=== PATIENT | female | born 1955 | race African-American/Black ===

== ENCOUNTER 2018-05-01 16:25 | Emergency (ER) | payer MEDICAID ==
[~2018-05-01] VITALS: Ht 162.6 cm; Wt 93.2 kg
[~2018-05-01 16:25] MED LIST: FLORAJEN3 CAPS460 MG PO; K-TAB10 MEQ PO; LEVAQUIN; LOPRESSOR25 MG PO; OMNICEF300 MG PO; PHENERGAN PO; PROAIR HFA8.5 GM INH; ZITHROMAX250 MG PO
[2018-05-01 16:29] VITALS: Ht 162.6 cm; Wt 93.2 kg
[2018-05-01] MEDS ORDERED: HYDROCODON-ACE1 EAC7 PO (18:12)
[2018-05-01] MEDS ORDERED: TORADOL10 MG PO (18:12)
[2018-05-01 18:29] VITALS: BP 127/58
== END 2018-05-01 18:29 | disposition home or self-care (01) ==
LOC: D.ER 16:25
DX: S80.02XA Contusion of left knee, initial encounter (principal); S80.01XA Contusion of right knee, initial encounter; W18.30XA Fall on same level, unspecified, initial encounter; Y93.89 Activity, other specified; Y92.019 Unspecified place in single-family (private) house as the place of occurrence of the external cause; M16.12 Unilateral primary osteoarthritis, left hip

== ENCOUNTER 2020-03-11 20:39 | Emergency (ER) | payer SELFPAY ==
[~2020-03-11] VITALS: Ht 162.6 cm; Wt 63.5 kg
[~2020-03-11 20:39] MED LIST changes: +HYDROCODON-ACE1 EAC7 PO; +TORADOL10 MG PO
[2020-03-11 20:55] VITALS: Ht 162.6 cm; Wt 63.5 kg
[2020-03-11] MEDS ORDERED: FERROUS SULFAT325 MG PO (20:55)
[2020-03-11 21:06] LABS: BASOPHILS 0.1 % (0-2); EOSINOPHILS 0.7 % (0-7); HEMATOCRIT 37.4 % (36.0-48.0); HEMOGLOBIN 12.2 g/dL (12-16); IMMATURE GRANULOCYTES 0.3 % (0-5); LYMPHOCYTES 27.1 % (15-50); MCH 27.9 pg (26.0-34.0); MCHC 32.6 g/dL (31.0-37.0); MCV 85.6 fL (80.0-100.0); MEAN PLATELET VOLUME 9.8 fL (7.4-10.4); MONOCYTES 7.3 % (2-11); NEUTROPHILS 64.5 % (40-80); PLATELET COUNT 282 10x3/uL (130-400); RBC 4.37 10x6/uL (4.00-5.40); RDW 14.8 % (11.5-14.5); WBC 9.2 10x3/uL (4.8-10.8)
[2020-03-11 21:21] LABS: INR 1.15 (0.85-1.17); PROTIME 14.6 SECONDS (11.6-15.0)
[2020-03-11 21:22] LABS: APTT 34.4 SECONDS (22.8-39.4)
[2020-03-11 21:33] LABS: ALBUMIN 4.1 g/dL (3.4-5.0); ALKALINE PHOSPHATASE 51 U/L (30-120); ALT (SGPT) 34 U/L (10-68); BILIRUBIN - TOTAL 0.64 mg/dL (0.2-1.3); CALC OSMOLALITY 247 mosm/kg (275-300); CALCIUM 9.4 mg/dL (8.5-10.1); CARBON DIOXIDE 31.3 mmol/L (21.0-32.0); CKMB 4.4 U/L (0.0-3.6); GLUCOSE 127 mg/dL (74-106); PROTEIN - SERUM 9.1 g/dL (6.4-8.2); SODIUM 123 mmol/L (136-145); TROPONIN-I < 0.017 ng/mL (0.000-0.060); UREA NITROGEN 8 mg/dL (7-18); eGFR NON AFRICAN AMERICAN 59 mL/min (90-120)
[2020-03-11 21:36] LABS: CREATINE KINASE 882 UL (21-215)
[2020-03-11 21:43] LABS: CHLORIDE - SERUM 85 mmol/L (98-107); POTASSIUM - SERUM 2.7 mmol/L (3.5-5.1)
[2020-03-12 00:12] VITALS: BP 164/89
== END 2020-03-12 00:12 | disposition home or self-care (01) ==
LOC: D.ER 20:39
PROVIDERS: Family Medicine
DX: E86.0 Dehydration (principal); E87.6 Hypokalemia; E87.1 Hypo-osmolality and hyponatremia

== ENCOUNTER 2020-03-13 20:05 | Inpatient (IN) | payer SELFPAY ==
[~2020-03-13] VITALS: Ht 162.6 cm; Wt 68.0 kg
[~2020-03-13 20:05] MED LIST changes: +FERROUS SULFAT325 MG PO
[2020-03-13 20:42] LABS: BASOPHILS 0.3 % (0-2); EOSINOPHILS 0.4 % (0-7); HEMATOCRIT 38.6 % (36.0-48.0); HEMOGLOBIN 12.5 g/dL (12-16); IMMATURE GRANULOCYTES 0.3 % (0-5); LYMPHOCYTES 20.4 % (15-50); MCH 27.9 pg (26.0-34.0); MCHC 32.4 g/dL (31.0-37.0); MCV 86.2 fL (80.0-100.0); MEAN PLATELET VOLUME 9.2 fL (7.4-10.4); MONOCYTES 6.8 % (2-11); NEUTROPHILS 71.8 % (40-80); PLATELET COUNT 243 10x3/uL (130-400); RBC 4.48 10x6/uL (4.00-5.40); WBC 6.9 10x3/uL (4.8-10.8)
[2020-03-13 20:57] LABS: CALC OSMOLALITY 268 mosm/kg (275-300); CALCIUM 8.8 mg/dL (8.5-10.1); CARBON DIOXIDE 31.1 mmol/L (21.0-32.0); CHLORIDE - SERUM 95 mmol/L (98-107); GLUCOSE 115 mg/dL (74-106); SODIUM 135 mmol/L (136-145); UREA NITROGEN 7 mg/dL (7-18)
[2020-03-13 20:59] LABS: CREATININE - SERUM 0.7 mg/dL (0.6-1.3); POTASSIUM - SERUM 3.6 mmol/L (3.5-5.1); eGFR NON AFRICAN AMERICAN 90 mL/min (90-120)
[2020-03-13 21:00] VITALS: BP 124/72
[2020-03-13 21:22] LABS: ALBUMIN 4.1 g/dL (3.4-5.0); ALKALINE PHOSPHATASE 50 U/L (30-120); ALT (SGPT) 32 U/L (10-68); BILIRUBIN - TOTAL 0.57 mg/dL (0.2-1.3); CREATINE KINASE 348 UL (21-215); LIPASE 156 U/L (73-393); MAGNESIUM - SERUM 2.2 mg/dL (1.8-2.4); PRO BNP 11 pg/mL (0-125); PROTEIN - SERUM 8.7 g/dL (6.4-8.2); THYROID STIMULATING HORMONE 1.33 uIU/mL (0.36-3.74); TROPONIN-I < 0.017 ng/mL (0.000-0.060)
[2020-03-13 21:23] LABS: CKMB 0.7 U/L (0.0-3.6)
[2020-03-13 21:50] LABS: BILIRUBIN NEGATIVE (NEGATIVE); GLUCOSE NEGATIVE (NEGATIVE); KETONE LARGE mg/dL (NEGATIVE); NITRITE NEGATIVE (NEGATIVE); UROBILINOGEN NORMAL (NORMAL)
[2020-03-13 21:51] LABS: BACTERIA MODERATE /hpf (NEGATIVE); EPITHELIAL CELLS 0-5 /hpf (0-5); RED CELLS - URINE 0-5 /hpf (0-5); WHITE CELLS - URINE 0-5 /hpf (NEGATIVE)
[2020-03-13 21:55] LABS: UDS - AMPHET NEGATIVE QUAL (NEGATIVE); UDS - BARB NEGATIVE QUAL (NEGATIVE); UDS - BENZO NEGATIVE QUAL (NEGATIVE); UDS - COCAINE NEGATIVE QUAL (NEGATIVE); UDS - OPIATE NEGATIVE QUAL (NEGATIVE); UDS - PCP NEGATIVE QUAL (NEGATIVE); UDS - THC NEGATIVE QUAL (NEGATIVE)
[2020-03-13 22:00] VITALS: BP 145/84
--- NOTE | 2020-03-13 22:05 | NUR ---
CALLED [facility]- NO BEDS AVAILABLE
--- NOTE | 2020-03-13 22:15 | NUR ---
CALLED [facility]-NO BEDS AVAILABLE
--- NOTE | 2020-03-13 22:18 | NUR ---
CALL TO [facility]- NO BEDS AVAILABLE AT [facility]
--- NOTE | 2020-03-13 22:25 | NUR ---
CALL TO [facility]- REQUESTS NEGATIVE COVID BEFORE WILL CONSIDER ADMISSION
[2020-03-13 23:00] VITALS: BP 137/81
--- NOTE | 2020-03-14 00:13 | NUR ---
ADMITTED PATIENT TO UNIT. SON AT BEDSIDE. ASSISTED IN ASSESSMENT AND HISTORY. PATIENT SLOW TO RESPOND, BUT ANWERS MOST QUESTIONS APPROPRAITELY. DENIES PAIN OR DISCOMFORT AT THIS TIME. ASSESSMENT COMPLETE. INSTRUCTED PATIENT AND FAMILY MEMBER ON HOW TO USE CALL LIGHT AND TO CALL NURSE FOR ANY ASSISTANCE. BOTH VERBALIZES UNDERSTANDING. CPOC.
[2020-03-14 00:17] VITALS: BP 138/89; BMI 25.8
[2020-03-14 04:00] VITALS: BP 147/65
[2020-03-14 04:59] LABS: BASOPHILS 0.1 % (0-2); EOSINOPHILS 0.6 % (0-7); HEMOGLOBIN 11.8 g/dL (12-16); IMMATURE GRANULOCYTES 0.2 % (0-5); LYMPHOCYTES 32.9 % (15-50); MCH 27.4 pg (26.0-34.0); MCHC 31.9 g/dL (31.0-37.0); MCV 85.8 fL (80.0-100.0); MEAN PLATELET VOLUME 9.6 fL (7.4-10.4); MONOCYTES 6.9 % (2-11); NEUTROPHILS 59.3 % (40-80); PLATELET COUNT 249 10x3/uL (130-400); RBC 4.31 10x6/uL (4.00-5.40); RDW 14.7 % (11.5-14.5); WBC 8.3 10x3/uL (4.8-10.8)
[2020-03-14 05:31] LABS: % SATURATION 16 % (15-55); IRON 43 ug/dl (35-150); TOTAL IRON BIND CAPACITY 259 ug/dl (260-445); UNSAT IRON BIND CAPACITY 216 ug/dl (150-375)
[2020-03-14 05:51] LABS: ALBUMIN 3.7 g/dL (3.4-5.0); ALKALINE PHOSPHATASE 48 U/L (30-120); ALT (SGPT) 28 U/L (10-68); BILIRUBIN - TOTAL 0.52 mg/dL (0.2-1.3); CALC OSMOLALITY 269 mosm/kg (275-300); CALCIUM 8.8 mg/dL (8.5-10.1); CARBON DIOXIDE 30.9 mmol/L (21.0-32.0); CHLORIDE - SERUM 97 mmol/L (98-107); CREATININE - SERUM 0.8 mg/dL (0.6-1.3); FERRITIN 782 ng/mL (3-244); GLUCOSE 97 mg/dL (74-106); PROTEIN - SERUM 8.5 g/dL (6.4-8.2); SODIUM 136 mmol/L (136-145); UREA NITROGEN 7 mg/dL (7-18); eGFR NON AFRICAN AMERICAN 77 mL/min (90-120)
--- NOTE | 2020-03-14 06:45 | NUR ---
RESTING IN BED WITH EYES CLOSED. RESPIRATIONS EVEN AND UNLABORED. NO S/S OF ACUTE DISTRESS NOTED. STANDBY ASSIST. INCONTINENT B&B. MELVA ALARM ON. SCDS ON. IV TO RIGHT FOREARM, NS INFUSING @ 125ML/HR. SITE PATENT WITHOUT REDNESS OR SWELLING. POTASSIUM 2.6 THIS AM, CALLED FOR A REDRAW. CALL LIGHT IN REACH. WILL CONTINUE TO MONITOR.
[2020-03-14 06:52] LABS: POTASSIUM - SERUM 2.6 mmol/L (3.5-5.1)
[2020-03-14 08:39] VITALS: BP 143/78
--- NOTE | 2020-03-14 10:45 | NUR ---
PT LENORA K+ OF 2.6 THIS MORNING. 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 WILL REPLETE [place] PROTOCOL AND CONTINUE WITH PLAN OF CARE
[2020-03-14 12:29] VITALS: BP 166/92
[2020-03-14 17:15] VITALS: BP 142/82
--- NOTE | 2020-03-14 18:18 | NUR ---
RESTING IN BED, EYES CLOSED. RESPIRATIONS EVEN AND UNLABORED. NO S/S OF ACUTE DISTRESS NOTED. CALL LIGHT IN REACH. MELVA ALARM ON. WILL CONTINUE TO MONITOR.
[2020-03-14 20:00] VITALS: BP 147/83
--- NOTE | 2020-03-14 22:43 | NUR ---
PATIENT WOKE UP, YELLING FOR HELP. ASSISTING PATIENT. PATIENT IS PARANOID. STATES THAT SOMEONE DID SOMETHING WRONG, TOOK SOMETHING OUT, THREW SOMETHING AWAY. PATIENT REMAINS PARANOID AND CONCERNED EVEN WITH REDIRECTION. EXPLAINED IV FLUIDS, POTASSIUM REPLACEMENT, AND ANTIBIOTICS TO PATIENT. SHE REMAINS ANXIOUS AND UPSET. REPEATEDLY SAYING "THE NURSE TOOK IT OUT, SHE MESSED UP, SHE TOOK IT OUT." BUT PATIENT IS UNABLE TO TELL THIS NURSE WHAT SHE IS REFERRING TO OR WHO SHE IS REFERRING TO. PATIENT CAN NOT REMEMBER TALKING TO DOCTOR OR DRAINAGE INSPECTOR THIS MORNING. REMINDED HER THAT SHE HAS BEEN SEEN AND THAT WE ARE WORKING TOWARDS CARE PLAN GOALS. PATIENT PROVIDED SUPPORT TO PATIENT. AFTER SEVERAL MINUTES WITH PATIENT, SHE IS RESTING.
--- NOTE | 2020-03-15 00:19 | NUR ---
PATIENT UP TO BATHROOM WITH ASSISTANCE. PATIENT REMAINS CONFUSED AND PARANOID. SHE REPEATS "SHE KNEW IT WOULD MESS UP, WHEN I OPENED MY EYES SHE KNEW IT WOULD MESS UP." PATIENT REMAINS CONFUSED EVEN WITH SUPPORT.
--- NOTE | 2020-03-15 02:33 | NUR ---
PATIENT RESTING WITH NO SIGNS OR SYMPTOMS OF DISTRESS AT THIS TIME. CPOC.
--- NOTE | 2020-03-15 03:12 | NUR ---
PATIENT WOKE CONFUSED AGAIN. CHARGE NURSE, WENDI POST, AT BEDSIDE WITH THIS NURSE AT THIS TIME. PATIENT STATES "YOU MESSED UP. I THOUGHT YOU WERE BETTER THAN THIS. YOU MESSED UP MY MEDICINE." SPOKE WITH PATIENT THAT THERE WERE NO MESS UPS INVOLVED AND THAT EACH NURSE HAS FOLLOWED OREDRS THAT THE DOCTOR HAS PUT IN. CHARGE NURSE REVEIWED ORDERS WITH THIS NURSE. ALL IS CORRECT AT THIS TIME. CHARGE NURSE VALIDATED THIS TO PATIENT WELL THIS NURSE VALIDATED TO PATIENT. PROVIDED SUPPORT TO PATIENT THAT SHE IS SAFE. PATIENT REMAINS CONFUSED AND UNABLE TO REDIRECT. FALLS BACK TO SLEEP AFTER SITTING WITH PATIENT FOR SEVERAL MINUTES.
[2020-03-15 04:30] VITALS: BP 150/86
--- NOTE | 2020-03-15 07:00 | NUR ---
PT IS AAO X 3 AND REQUESTING ASSISTANCE TO RESTROOM. ASSISTANCE GIVEN PER PT REQUEST. POST VOID PT STATES "YOU ARE NOT HELPING ME. IT IS A SHAME THAT YOU ALL WANT TO HURT PEOPLE". PT EDUCATED ON PLAN OF CARE AND ROLE OF STAFF. PT REFUSES TO ACCEPT THIS NURSE BEING "HELPFUL". PT REFUSES ASSISTANCE WITH AMBULATING FROM RESTROOM TO BED. PT GETS BACK TO BED WITH STANDBY ASSIST WITHOUT DIFFICULTY. PT REORIENTED TO SITUATION. PT IS REFUSING TO COMMUNICATE WITH NURSE AT THIS TIME. ALL FALL PRECAUTIONS IN PLACE. BED IS IN THE LOWEST POSITION. CALL LIGHT AND BEDSIDE TABLE ARE WITHIN REACH. SIDE RAILS X 2. WILL CONT TO MONITOR.
[2020-03-15 08:00] VITALS: BP 155/79
--- NOTE | 2020-03-15 09:18 | NUR ---
PT IS REFUSING ALL MEDICATIONS AT THIS TIME. PT STATES "THE DR DID NOT ORDER THAT FOR ME. YOU ALL ARE OUT TO HURT ME AND THAT IS A SHAME". PT REORIENTED TO PLACE AND PLAN OF CARE. PT CONTINUES TO REFUSE MEDICAITONS AT THIS TIME.
--- NOTE | 2020-03-15 09:50 | CN ---
PATIENT NAME:AMARIS FLOWER MEDICAL RECORD: [id number] : 57 LOCATION:D.MS [id number] ADMIT DATE: 03/14/20 ACCOUNT: [id number] CONSULTING PHYSICIAN: SONIA PURDY MD REFERRING PHYSICIAN: DANIELLE HA MD DATE OF CONSULTATION: 03/14/2020 IDENTIFYING DATA: The patient is 64 years old and she was admitted to the hospital because her family wanted her here for evaluation. CHIEF COMPLAINT: None. HISTORY OF PRESENT ILLNESS: The patient denies any particular problems. She looks depressed and endorses a lot of depressive symptoms, but denies that she is depressed. She denies that she would seek to harm herself. She is flat, blunted, withdrawn and very slow to respond. I am not able to fully evaluate mental status with regard to memory and abstraction abilities because of her limited cooperation. I think at 64 it is unlikely that she has a dementia, but certainly would be in the differential. More than likely given the fact that she has these depressive symptoms, the most likely diagnosis is simply major depression. In addition to that, there could be concerns about a cluster C personality disorder. She denies substance abuse and her drug screen was negative. ASSESSMENT: Major depression. PLAN: The patient has no evidence of direct dangerousness yet. Given her situation, I do not see how she could care for herself. I would assume the family can care for her. I will start her on medications and refer her to outpatient services. TRANSINT:[id number] Voice Confirmation ID: [id number] DOCUMENT ID: [id number] SONIA PURDY MD at 0950 CC: [id number] DICTATION DATE: 03/14/20 173 FLAKE MILLER HELPER: 03/15/20 0028 ADM IN [facility] [address] [place] [address]
[2020-03-15 12:00] VITALS: BP 124/75
[2020-03-15 13:05] VITALS: Ht 162.6 cm; Wt 68.0 kg
[2020-03-15 16:00] VITALS: BP 119/71
[2020-03-15 20:00] VITALS: BP 113/56
[2020-03-16 04:00] VITALS: BP 136/75
--- NOTE | 2020-03-16 07:20 | NUR ---
ASSISTED PT FROM BED TO BATHROOM X 1 ASSIST. RESP EVEN AND UNLABORED. DENIES PAIN. PT DID WELL AMBULATING, SLIGHT UNSTEADINESS NOTED AT THIS TIME. IV TO RIGHT FOREARM WITH NS @125ML/HR INFUSING VIA PUMP, SITE WITHOUT REDNESS OR EDEMA. DENIES FURTHER NEEDS AT THIS TIME. CL WITHIN REACH. CONTINUE POC
[2020-03-16 07:34] LABS: CALC OSMOLALITY 275 mosm/kg (275-300); CARBON DIOXIDE 27.8 mmol/L (21.0-32.0); CHLORIDE - SERUM 104 mmol/L (98-107); CREATININE - SERUM 0.6 mg/dL (0.6-1.3); GLUCOSE 100 mg/dL (74-106); SODIUM 139 mmol/L (136-145); UREA NITROGEN 6 mg/dL (7-18); eGFR NON AFRICAN AMERICAN > 90 mL/min (90-120)
[2020-03-16 07:51] LABS: POTASSIUM - SERUM 2.7 mmol/L (3.5-5.1)
[2020-03-16 07:55] LABS: BASOPHILS 0.1 % (0-2); EOSINOPHILS 3.5 % (0-7); HEMOGLOBIN 10.6 g/dL (12-16); IMMATURE GRANULOCYTES 0.2 % (0-5); LYMPHOCYTES 31.8 % (15-50); MCH 27.6 pg (26.0-34.0); MCHC 32.1 g/dL (31.0-37.0); MCV 85.9 fL (80.0-100.0); MEAN PLATELET VOLUME 10.4 fL (7.4-10.4); NEUTROPHILS 58.4 % (40-80); RBC 3.84 10x6/uL (4.00-5.40); RDW 14.9 % (11.5-14.5)
[2020-03-16 07:57] LABS: PLATELET COUNT 190 10x3/uL (130-400)
[2020-03-16 08:46] VITALS: BP 161/84
[2020-03-16 12:17] VITALS: BP 169/82
[2020-03-16 16:53] VITALS: BP 177/89
[2020-03-16 20:00] VITALS: BP 156/93
[2020-03-17 04:00] VITALS: BP 167/91
--- NOTE | 2020-03-17 07:38 | NUR ---
PT RESTING IN BED. RESP EVEN AND UNLABORED. CALL PT NAME, NO VERBAL RESPONSE. TOUCHED PT ARM, STILL NO RESPONSE. STERNAL RUB PERFORMED, PT DID WITHDRAW FROM STAFF, BUT WITHOUT ANY VERBAL RESPONSE, EYES REMAIN SHUT. TALKED TO PT, PT NODS HEAD NO TO STAFF QUESTION REGARDING WANTING A DRINK OF WATER. IV TO RIGHT FOREARM WITH NS @ 125ML/HR INFUSING VIA PUMP. SITE WITHOUT REDNESS OR EDEMA. NO S/S OF PAIN NOTED AT THIS TIME. CL WITHIN REACH. ENCOURAGED TO CALL WITH NEEDS. CONTINUE POC
[2020-03-17 09:48] VITALS: BP 163/83
[2020-03-17 11:11] LABS: CALC OSMOLALITY 268 mosm/kg (275-300); CALCIUM 8.4 mg/dL (8.5-10.1); CARBON DIOXIDE 27.6 mmol/L (21.0-32.0); CHLORIDE - SERUM 101 mmol/L (98-107); CREATININE - SERUM 0.5 mg/dL (0.6-1.3); GLUCOSE 98 mg/dL (74-106); SODIUM 136 mmol/L (136-145); UREA NITROGEN 5 mg/dL (7-18); eGFR NON AFRICAN AMERICAN > 90 mL/min (90-120)
[2020-03-17 11:25] LABS: POTASSIUM - SERUM 2.9 mmol/L (3.5-5.1)
[2020-03-17 12:13] LABS: BASOPHILS 0.3 % (0-2); EOSINOPHILS 2.4 % (0-7); HEMATOCRIT 34.9 % (36.0-48.0); HEMOGLOBIN 11.2 g/dL (12-16); IMMATURE GRANULOCYTES 0.3 % (0-5); LYMPHOCYTES 29.8 % (15-50); MCH 27.6 pg (26.0-34.0); MCHC 32.1 g/dL (31.0-37.0); MEAN PLATELET VOLUME 10.4 fL (7.4-10.4); MONOCYTES 6.9 % (2-11); NEUTROPHILS 60.3 % (40-80); PLATELET COUNT 215 10x3/uL (130-400); RBC 4.06 10x6/uL (4.00-5.40); RDW 14.9 % (11.5-14.5); WBC 6.7 10x3/uL (4.8-10.8)
[2020-03-17 12:58] VITALS: BP 153/85
--- NOTE | 2020-03-17 13:14 | MORECARE ---
CASE MANAGEMENT DISCHARGE SUMMARY PATIENT: AMARIS FLOWER UNIT: [id number] ADM DATE: 03/14/20 AGE: 64 : 56 SEX: F ROOM/BED: D.2208 AUTHOR: JAILENE PARR PHYSICIAN: REFERRING PHYSICIAN: DANIELLE HA MD DATE OF SERVICE: 03/17/20 Discharge Plan Patient Name: AMARIS FLOWER Facility: [facility]:[place] : 1955 Planned Disposition: Home or Self Care Anticipated Discharge Date: Discharge Date: Expected LOS: Initial Reviewer: [email or web address] Initial Review Date: 03/14/2020 Generated: 03/17/20 2:14 pm DCP- Discharge Planning Updated by [email or web address]: Chasity Meader on 03/15/20 8:[address] [facility] WITH MED-DATA STATED THAT HE SPOKE WITH PATIENT AND SHE REFUSED TO APPLY FOR MEDICAID STATED THAT SHE WOULD APPLY ON HER OWN. DCPIA - Discharge Planning Initial Assessment Updated by [email or web address]: Velia Holt on 03/17/20 1:11 pm * Is the patient Alert and Oriented? Yes * PCP DILCIA * Preadmission Environment Home with Family * ADLs Independent * Equipment None * List name and contact numbers for known caregivers / representatives who currently or will assist patient after discharge: IAN RAMIREZ ( SON) [phone] * Community resources currently utilized None * Additional services required to return to the preadmission environment? No * Can the patient safely return to the preadmission environment? Yes * Has this patient been hospitalized within the prior 30 days at any hospital? No Patient Name: AMARIS FLOWER Page [id number] at 1314 All edits/amendments must be made on the electronic document DICTATION DATE: 03/17/20 1314 BLOOD AND PLASMA LABORATORY ASSISTANT: RELL 03/17/20 1314 RPT#: [id number] DC DATE: STATUS: ADM IN [facility] [address] [place] [address] END OF REPORT
--- NOTE | 2020-03-17 13:23 | MORECARE ---
CASE MANAGEMENT DISCHARGE SUMMARY PATIENT: AMARIS FLOWER UNIT: [id number] ADM DATE: 03/14/20 AGE: 64 : 57 SEX: F ROOM/BED: D.2208 AUTHOR: JAILENE PARR PHYSICIAN: REFERRING PHYSICIAN: DANIELLE HA MD DATE OF SERVICE: 03/17/20 Discharge Plan Patient Name: AMARIS FLOWER Facility: [facility]:[place] : 1955 Planned Disposition: Home or Self Care Anticipated Discharge Date: Discharge Date: Expected LOS: Initial Reviewer: [id number] Initial Review Date: 03/14/2020 Generated: 03/17/20 2:23 pm Comments DCP- Discharge Planning Updated by [email or web address]: Velia Holt on 03/17/20 12:[address] Patient Name: AMARIS FLOWER Admission Status: ER Accout number: [id number] Admission Date: 03-14-2020 : 1955 Admission Diagnosis:WEAKNESS Attending: DANIELLE HA Current LOS: 3 Anticipated DC Date: Planned Disposition: Home or Self Care Primary Insurance: UNINSURED DISCOUNT PLAN Discharge Planning Comments: late entry 03/16/20 @ 1300 CM SPOKE WITH PATIENT'S OLDEST SON JUSTO PLEASENT TO ASSESS DISCHARGE PLANNING NEEDS. PER SON, HIS MOM LIVES WITH HER WHERE SHE IS INDEPENDENT WITH HER CARE. 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 HE STATED THAT SHE HAD AN EPISODE LIKE THIS BACK IN 2005 OR 2007. WHERE SHE WAS VERY PARANOID AND WAS COMPLETLY NOT HERSELF & THEY DETERMINED THAT HER VITAMIN B12 WAS VERY LOW. JUSTO STATED THAT LAST SAT-SAT ( ) SHE WAS HER NORMAL SELF. Feb A [email or web address] WAS THERE AND SHE STARTED GETTING PARANOID & THEN DID IT AGAIN THE NEXT DAY WITH HER BROTHER. SATURDAY SHE WAS VERY WEAK AND WOULD NOT EAT OR DRINK. SHE COULD NOT COMPLETE A SENTENCE. HER FAMILY BROUGHT HER TO THE ER AND SHE WAS DX WITH DEHYDRATION, THEY GAVE HER FLUIDS AND SENT HER HOME. SATURDAY SHE VOIDED ON HERSELF AND THEY BROUGHT HER BACK TO THE HOSPITAL. JUSTO SAYS THAT HOW HIS MOM IS ACTING EXACTLY HOW SHE WAS WHEN HER IRON AND B12 WAS SO LOW. HER PLAN WILL BE TO RETURN HOME WHEN SHE IS ABLE. PER HER FAMILY SHE DOES NOT HAVE ANY TYPE OF PSYCHOLOGICAL DISORDER CM WILL CONTINUE TO FOLLOW AND ASSIST NEEDED Javascript Front End Developer: Velia Holt DCP- Discharge Planning Updated by [email or web address]: Chasity York on 03/15/20 8:[address] [facility] WITH MED-DATA STATED THAT HE SPOKE WITH PATIENT AND SHE REFUSED TO APPLY FOR MEDICAID STATED THAT SHE WOULD APPLY ON HER OWN. DCPIA - Discharge Planning Initial Assessment Updated by [email or web address]: Velia Holt on 03/17/20 1:11 pm * Is the patient Alert and Oriented? Yes * PCP DILCIA * Preadmission Environment Home with Family * ADLs Independent * Equipment None * List name and contact numbers for known caregivers / representatives who currently or will assist patient after discharge: IAN RAMIREZ ( SON) [phone] * Community resources currently utilized None * Additional services required to return to the preadmission environment? No * Can the patient safely return to the preadmission environment? Yes * Has this patient been hospitalized within the prior 30 days at any hospital? No Last DP export: 03/17/20 12:14 p Patient Name: AMARIS FLOWER Page [id number] at 1323 All edits/amendments must be made on the electronic document DICTATION DATE: 03/17/20 1323 SAMMYING MACHINE OPERATOR: RELL 03/17/20 1323 RPT#: [id number] DC DATE: STATUS: ADM IN [facility] [address] [place] [address] END OF REPORT
[2020-03-17 17:23] VITALS: BP 157/91
[2020-03-17 20:00] VITALS: BP 166/90
[2020-03-18] VITALS: BP 166/89
[2020-03-18 04:00] VITALS: BP 165/89
[2020-03-18 04:43] LABS: BASOPHILS 0.3 % (0-2); EOSINOPHILS 2.7 % (0-7); HEMATOCRIT 34.6 % (36.0-48.0); IMMATURE GRANULOCYTES 0.1 % (0-5); LYMPHOCYTES 29.9 % (15-50); MCH 27.2 pg (26.0-34.0); MCHC 31.8 g/dL (31.0-37.0); MCV 85.4 fL (80.0-100.0); MEAN PLATELET VOLUME 9.7 fL (7.4-10.4); MONOCYTES 7.3 % (2-11); NEUTROPHILS 59.7 % (40-80); PLATELET COUNT 226 10x3/uL (130-400); RBC 4.05 10x6/uL (4.00-5.40); RDW 14.8 % (11.5-14.5)
[2020-03-18 05:08] LABS: CALC OSMOLALITY 267 mosm/kg (275-300); CALCIUM 8.2 mg/dL (8.5-10.1); CARBON DIOXIDE 27.7 mmol/L (21.0-32.0); CHLORIDE - SERUM 100 mmol/L (98-107); CREATININE - SERUM 0.5 mg/dL (0.6-1.3); GLUCOSE 88 mg/dL (74-106); POTASSIUM - SERUM 3.1 mmol/L (3.5-5.1); SODIUM 136 mmol/L (136-145); UREA NITROGEN 4 mg/dL (7-18); eGFR NON AFRICAN AMERICAN > 90 mL/min (90-120)
--- NOTE | 2020-03-18 06:50 | NUR ---
RESTING IN BED WITH EYES CLOSED. RESPIRATIONS EVEN AND UNLABORED. NO S/S OF ACUTE DISTRESS NOTED. IV TO RIGHT FOREARM, NS INFUSING @ 125ML/HR. SITE PATENT WITHOUT REDNESS OR SWELLING. BED ALARM ON. CALL LIGHT IN REACH. WILL CONTINUE TO MONITOR.
--- NOTE | 2020-03-18 07:53 | NUR ---
POTASSIUM 3.1 THIS AM, WILL FOLLOW ELECTROLYTE PROTOCOL.
[2020-03-18 09:17] VITALS: BP 149/81
--- NOTE | 2020-03-18 13:31 | NUR ---
Nutrition follow-up: Pt receiving a regular diet with po intake ~50% of meals Labs reviewed WT: 150# Daily B12 injections Will continue to offer nutritional supplements. RDN following.
--- NOTE | 2020-03-18 14:01 | NUR ---
PATIENT IN BED, REQUESTED LIGHT OFF. DENIES PAIN OR NEEDS, TRYING TO TAKE A NAP.
--- NOTE | 2020-03-18 18:12 | NUR ---
RESTING IN BED WITH EYES OPEN. NO C/O PAIN. NO S/S OF ACUTE DISTRESS NOTED. DENIES ANY NEEDS AT THIS TIME. CALL LIGHT IN REACH. MELVA ALARM ON. WILL CONTINUE TO MONITOR.
--- NOTE | 2020-03-19 03:00 | NUR ---
I have reviewed this patient and I concur with the Shift Assessment completed by the Licensed Practical Nurse today this shift.
[2020-03-19 06:20] LABS: BASOPHILS 0.3 % (0-2); EOSINOPHILS 3.2 % (0-7); HEMATOCRIT 35.7 % (36.0-48.0); HEMOGLOBIN 11.4 g/dL (12-16); IMMATURE GRANULOCYTES 0.3 % (0-5); LYMPHOCYTES 34.1 % (15-50); MCH 27.5 pg (26.0-34.0); MCHC 31.9 g/dL (31.0-37.0); MCV 86.2 fL (80.0-100.0); MEAN PLATELET VOLUME 9.8 fL (7.4-10.4); MONOCYTES 8.4 % (2-11); NEUTROPHILS 53.7 % (40-80); PLATELET COUNT 228 10x3/uL (130-400); RBC 4.14 10x6/uL (4.00-5.40); RDW 15.1 % (11.5-14.5); WBC 7.6 10x3/uL (4.8-10.8)
[2020-03-19] MEDS ORDERED: VITAMIN B-121000 MCG PO (08:10)
--- NOTE | 2020-03-19 08:59 | MORECARE ---
CASE MANAGEMENT DISCHARGE SUMMARY PATIENT: AMARIS FLOWER UNIT: [id number] ADM DATE: 03/14/20 AGE: 64 : 57 SEX: F ROOM/BED: D.2208 AUTHOR: JAILENE PARR PHYSICIAN: REFERRING PHYSICIAN: DANIELLE HA MD DATE OF SERVICE: 03/19/20 Discharge Plan Patient Name: AMARIS FLOWER Facility: [facility]:[place] : 1955 Planned Disposition: Home or Self Care Anticipated Discharge Date: Discharge Date: Expected LOS: Initial Reviewer: [email or web address] Initial Review Date: 03/14/2020 Generated: 03/19/20 9:58 am Comments DCP- Discharge Planning Updated by [email or web address]: Viola Mercado on 03/19/20 7:[address] CM met with patient to discuss discharge plan. Pt states that this CM is not her social service agency director and will not speak to CM. Patient states she is fine, and does not need anything. Pt states her son will pick her up. At discharge patient plans to return home and feels this is a safe discharge. CM discussed availability of home health, rehab services, and medical equipment. Patient denied known discharge needs at this time. Patient refused to sign declination. CM provided pt with CM number if she has any needs. CM spoke with patient nurse about update. CM will continue to assist as needed. Viola Mercado DCP- Discharge Planning Updated by [id number]: Velia Holt on 03/17/20 12:[address] Patient Name: AMARIS FLOWER Admission Status: ER Accout number: [id number] Admission Date: 03-14-2020 : 1955 Admission Diagnosis:WEAKNESS Attending: DANIELLE HA Current LOS: 3 Anticipated DC Date: Planned Disposition: Home or Self Care Primary Insurance: UNINSURED DISCOUNT PLAN Discharge Planning Comments: late entry 03/16/20 @ 1300 CM SPOKE WITH PATIENT'S OLDEST SON JUSTO PLEASENT TO ASSESS DISCHARGE PLANNING NEEDS. PER SON, HIS MOM LIVES WITH HER WHERE SHE IS INDEPENDENT WITH HER CARE. 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 HE STATED THAT SHE HAD AN EPISODE LIKE THIS BACK IN 2005 OR 2007. WHERE SHE WAS VERY PARANOID AND WAS COMPLETLY NOT HERSELF & THEY DETERMINED THAT HER VITAMIN B12 WAS VERY LOW. JUSTO STATED THAT LAST SAT-SAT ( ) SHE WAS HER NORMAL SELF. Feb A [employer] WAS THERE AND SHE STARTED GETTING PARANOID & THEN DID IT AGAIN THE NEXT DAY WITH HER BROTHER. SATURDAY SHE WAS VERY WEAK AND WOULD NOT EAT OR DRINK. SHE COULD NOT COMPLETE A SENTENCE. HER FAMILY BROUGHT HER TO THE ER AND SHE WAS DX WITH DEHYDRATION, THEY GAVE HER FLUIDS AND SENT HER HOME. SATURDAY SHE VOIDED ON HERSELF AND THEY BROUGHT HER BACK TO THE HOSPITAL. JUSTO SAYS THAT HOW HIS MOM IS ACTING EXACTLY HOW SHE WAS WHEN HER IRON AND B12 WAS SO LOW. HER PLAN WILL BE TO RETURN HOME WHEN SHE IS ABLE. PER HER FAMILY SHE DOES NOT HAVE ANY TYPE OF PSYCHOLOGICAL DISORDER CM WILL CONTINUE TO FOLLOW AND ASSIST NEEDED Bottle House Cleaners Supervisor: Velia Holt DCP- Discharge Planning Updated by [email or web address]: Chasity York on 03/15/20 8:[address] [facility] WITH MED-DATA STATED THAT HE SPOKE WITH PATIENT AND SHE REFUSED TO APPLY FOR MEDICAID STATED THAT SHE WOULD APPLY ON HER OWN. DCPIA - Discharge Planning Initial Assessment Updated by [email or web address]: Velia Holt on 03/17/20 1:11 pm * Is the patient Alert and Oriented? Yes * PCP DILCIA * Preadmission Environment Home with Family * ADLs Independent * Equipment None * List name and contact numbers for known caregivers / representatives who currently or will assist patient after discharge: IAN RAMIREZ ( SON) [phone] * Community resources currently utilized None * Additional services required to return to the preadmission environment? No * Can the patient safely return to the preadmission environment? Yes * Has this patient been hospitalized within the prior 30 days at any hospital? No Coverage Notice Reviewer: [id number] Nusrat Mercado Notice Issued Date-Time: 03/19/2020 8:45 Notice Type: Patient Choice Letter Notice Delivered To: Patient Relationship to Patient: Chief Medical Officer Name: Delivery Method: HAND - Hand Delivered Zainab Days: Prior Verbal Notification: Yes Recipient Understood Notice: Yes Recipient Signature: Med Rec Note Co-signed by Attending: Coverage Notice Comment: pt refused to sign declination. states she does not need anything. Last DP export: 03/17/20 12:23 p Patient Name: AMARIS FLOWER Page 18090 at 0859 All edits/amendments must be made on the electronic document DICTATION DATE: 03/19/20857 CANOPY INSPECTOR: RELL 03/19/20857 RPT#: [id number] DC DATE: STATUS: ADM IN [facility] [address] [place] [address] END OF REPORT
[2020-03-19 10:27] LABS: ALBUMIN 3.6 g/dL (3.4-5.0); ALKALINE PHOSPHATASE 41 U/L (30-120); ALT (SGPT) 30 U/L (10-68); BILIRUBIN - TOTAL 0.24 mg/dL (0.2-1.3); CALCIUM 8.4 mg/dL (8.5-10.1); CARBON DIOXIDE 25.6 mmol/L (21.0-32.0); CHLORIDE - SERUM 102 mmol/L (98-107); CREATININE - SERUM 0.5 mg/dL (0.6-1.3); GLUCOSE 91 mg/dL (74-106); POTASSIUM - SERUM 3.1 mmol/L (3.5-5.1); PROTEIN - SERUM 7.4 g/dL (6.4-8.2); SODIUM 137 mmol/L (136-145); eGFR NON AFRICAN AMERICAN > 90 mL/min (90-120)
[2020-03-19 10:29] LABS: CALC OSMOLALITY 271 mosm/kg (275-300); UREA NITROGEN 7 mg/dL (7-18)
--- NOTE | 2020-03-19 10:44 | NUR ---
I have reviewed this patient and I concur with the Shift Assessment completed by the Licensed Practical Nurse today this shift.
--- NOTE | 2020-03-19 16:00 | NUR ---
DISCHARGED PATIENT HOME WITH SON VIA WHEELCHAIR. DISCONTINUED IV, CATHETER TIP INTACT. WENT OVER DISCHARGE INSTRUCTIONS WITH PATIENT AND HER SON, VERBALIZED UNDERSTANDING. DENIES ANYTHING FURTHER.
--- NOTE | 2020-03-21 16:17 | MORECARE ---
CASE MANAGEMENT DISCHARGE SUMMARY PATIENT: AMARIS FLOWER UNIT: [id number] ADM DATE: 03/14/20 AGE: 64 : 57 SEX: F ROOM/BED: D.2208 AUTHOR: JAILENE PARR PHYSICIAN: REFERRING PHYSICIAN: DANIELLE HA MD DATE OF SERVICE: 03/21/20 Discharge Plan Patient Name: AMARIS FLOWER Facility: [facility]:[place] : 1955 Planned Disposition: Home or Self Care Anticipated Discharge Date: Discharge Date: 03/19/2020 Expected LOS: Initial Reviewer: [id number] Initial Review Date: 03/14/2020 Generated: 03/21/20 5:16 pm Comments DCP- Discharge Planning Updated by [email or web address]: Viola Mercado on 03/19/20 7:[address] CM met with patient to discuss discharge plan. Pt states that this CM is not her social media marketing manager and will not speak to CM. Patient states she is fine, and does not need anything. Pt states her son will pick her up. At discharge patient plans to return home and feels this is a safe discharge. CM discussed availability of home health, rehab services, and medical equipment. Patient denied known discharge needs at this time. Patient refused to sign declination. CM provided pt with CM number if she has any needs. CM spoke with patient nurse about update. CM will continue to assist as needed. Viola Mercado DCP- Discharge Planning Updated by [id number]: Velia Holt on 03/17/20 12:[address] Patient Name: AMARIS FLOWER Admission Status: ER Accout number: [id number] Admission Date: 03-14-2020 : 1955 Admission Diagnosis:WEAKNESS Attending: DANIELLE HA Current LOS: 3 Anticipated DC Date: Planned Disposition: Home or Self Care Primary Insurance: UNINSURED DISCOUNT PLAN Discharge Planning Comments: late entry 03/16/20 @ 1300 CM SPOKE WITH PATIENT'S OLDEST SON JUSTO PLEASENT TO ASSESS DISCHARGE PLANNING NEEDS. PER SON, HIS MOM LIVES WITH HER WHERE SHE IS INDEPENDENT WITH HER CARE. 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 HE STATED THAT SHE HAD AN EPISODE LIKE THIS BACK IN 2005 OR 2007. WHERE SHE WAS VERY PARANOID AND WAS COMPLETLY NOT HERSELF & THEY DETERMINED THAT HER VITAMIN B12 WAS VERY LOW. JUSTO STATED THAT LAST SAT-SAT ( ) SHE WAS HER NORMAL SELF. Feb A [employer] WAS THERE AND SHE STARTED GETTING PARANOID & THEN DID IT AGAIN THE NEXT DAY WITH HER BROTHER. SATURDAY SHE WAS VERY WEAK AND WOULD NOT EAT OR DRINK. SHE COULD NOT COMPLETE A SENTENCE. HER FAMILY BROUGHT HER TO THE ER AND SHE WAS DX WITH DEHYDRATION, THEY GAVE HER FLUIDS AND SENT HER HOME. SATURDAY SHE VOIDED ON HERSELF AND THEY BROUGHT HER BACK TO THE HOSPITAL. JUSTO SAYS THAT HOW HIS MOM IS ACTING EXACTLY HOW SHE WAS WHEN HER IRON AND B12 WAS SO LOW. HER PLAN WILL BE TO RETURN HOME WHEN SHE IS ABLE. PER HER FAMILY SHE DOES NOT HAVE ANY TYPE OF PSYCHOLOGICAL DISORDER CM WILL CONTINUE TO FOLLOW AND ASSIST NEEDED Mergers [employer] Acquis[employer] Banker: Velia Holt DCP- Discharge Planning Updated by [id number]: Chasity Jaylen on 03/15/20 8:[address] [facility] WITH [employer]-DATA STATED THAT HE SPOKE WITH PATIENT AND SHE REFUSED TO APPLY FOR MEDICAID STATED THAT SHE WOULD APPLY ON HER OWN. DCPIA - Discharge Planning Initial Assessment Updated by [id number]: Velia Holt on 03/17/20 1:11 pm * Is the patient Alert and Oriented? Yes * PCP DILCIA * Preadmission Environment Home with Family * ADLs Independent * Equipment None * List name and contact numbers for known caregivers / representatives who currently or will assist patient after discharge: IAN MATTSONNT ( SON) [phone] * Community resources currently utilized None * Additional services required to return to the preadmission environment? No * Can the patient safely return to the preadmission environment? Yes * Has this patient been hospitalized within the prior 30 days at any hospital? No Coverage Notice Reviewer: [id number] Nusrat Mercado Notice Issued Date-Time: 03/19/2020 8:45 Notice Type: Patient Choice Letter Notice Delivered To: Patient Relationship to Patient: Lookback Coordinator Name: Delivery Method: HAND - Hand Delivered Zainab Days: Prior Verbal Notification: Yes Recipient Understood Notice: Yes Recipient Signature: Med Rec Note Co-signed by Attending: Coverage Notice Comment: pt refused to sign declination. states she does not need anything. Last DP export: 03/19/20 7:59 a Patient Name: AMARIS FLOWER Page [phone] at 1617 All edits/amendments must be made on the electronic document DICTATION DATE: 03/21/201615 CAPACITY MANAGEMENT SPECIALIST: RELL 03/21/20 1616 RPT#: [id number] DC DATE:03/19/20 STATUS: DIS IN [facility] [address] [place] [address] END OF REPORT
== END 2020-03-19 16:01 | disposition home or self-care (01) | DRG 689 ==
LOC: D.ER 20:05 → D.MS 23:52 → OBSVTIME 03-14 14:58 → D.MS 03-14 16:31
PROVIDERS: Family Medicine; ADMIT Legal Medicine; ATTEND Legal Medicine
DX: N39.0 Urinary tract infection, site not specified (principal); G93.41 Metabolic encephalopathy; R62.7 Adult failure to thrive; Z68.25 Body mass index [BMI] 25.0-25.9, adult; E87.6 Hypokalemia; E53.8 Deficiency of other specified B group vitamins; F32.9 Major depressive disorder, single episode, unspecified

== ENCOUNTER 2020-03-20 19:57 | Inpatient (IN) | payer SELFPAY ==
[~2020-03-20] VITALS: Ht 162.6 cm; Wt 68.0 kg
[~2020-03-20 19:57] MED LIST changes: +VITAMIN B-121000 MCG PO
[2020-03-20 23:09] LABS: BILIRUBIN NEGATIVE (NEGATIVE); KETONE LARGE mg/dL (NEGATIVE); NITRITE NEGATIVE (NEGATIVE); UROBILINOGEN NORMAL (NORMAL)
[2020-03-20 23:10] LABS: BACTERIA FEW /hpf (NEGATIVE); EPITHELIAL CELLS 0-5 /hpf (0-5); RED CELLS - URINE 0-5 /hpf (0-5); WHITE CELLS - URINE 0-5 /hpf (NEGATIVE)
[2020-03-20 23:39] LABS: BASOPHILS 0.3 % (0-2); EOSINOPHILS 0.8 % (0-7); HEMATOCRIT 36.9 % (36.0-48.0); HEMOGLOBIN 11.8 g/dL (12-16); IMMATURE GRANULOCYTES 0.1 % (0-5); LYMPHOCYTES 22.2 % (15-50); MCH 27.5 pg (26.0-34.0); MEAN PLATELET VOLUME 8.9 fL (7.4-10.4); MONOCYTES 9.7 % (2-11); NEUTROPHILS 66.9 % (40-80); PLATELET COUNT 260 10x3/uL (130-400); RBC 4.29 10x6/uL (4.00-5.40); RDW 14.9 % (11.5-14.5); WBC 7.7 10x3/uL (4.8-10.8)
[2020-03-20 23:47] LABS: CALCIUM 9.7 mg/dL (8.5-10.1); CARBON DIOXIDE 29.3 mmol/L (21.0-32.0); CHLORIDE - SERUM 102 mmol/L (98-107); GLUCOSE 114 mg/dL (74-106); POTASSIUM - SERUM 3.3 mmol/L (3.5-5.1); SODIUM 137 mmol/L (136-145); eGFR NON AFRICAN AMERICAN 90 mL/min (90-120)
[2020-03-20 23:51] LABS: UREA NITROGEN 13 mg/dL (7-18)
[2020-03-20 23:52] LABS: CALC OSMOLALITY 274 mosm/kg (275-300); CREATININE - SERUM 0.7 mg/dL (0.6-1.3)
[2020-03-21 00:12] LABS: ALBUMIN 4.2 g/dL (3.4-5.0); ALKALINE PHOSPHATASE 49 U/L (30-120); ALT (SGPT) 27 U/L (10-68); BILIRUBIN - TOTAL 0.45 mg/dL (0.2-1.3); CREATINE KINASE 313 UL (21-215); MAGNESIUM - SERUM 2.3 mg/dL (1.8-2.4); PROTEIN - SERUM 9.1 g/dL (6.4-8.2)
[2020-03-21 00:14] LABS: CKMB 1.5 U/L (0.0-3.6)
[2020-03-21 04:43] VITALS: BMI 25.8
[2020-03-21 05:18] LABS: BASOPHILS 0.2 % (0-2); EOSINOPHILS 1.2 % (0-7); HEMATOCRIT 33.5 % (36.0-48.0); HEMOGLOBIN 10.6 g/dL (12-16); IMMATURE GRANULOCYTES 0.1 % (0-5); LYMPHOCYTES 27.8 % (15-50); MCH 27.5 pg (26.0-34.0); MCHC 31.6 g/dL (31.0-37.0); MEAN PLATELET VOLUME 10.1 fL (7.4-10.4); MONOCYTES 15.5 % (2-11); NEUTROPHILS 55.2 % (40-80); PLATELET COUNT 241 10x3/uL (130-400); RBC 3.85 10x6/uL (4.00-5.40); WBC 8.1 10x3/uL (4.8-10.8)
[2020-03-21 06:18] LABS: ALBUMIN 3.8 g/dL (3.4-5.0); ALKALINE PHOSPHATASE 46 U/L (30-120); ALT (SGPT) 29 U/L (10-68); BILIRUBIN - TOTAL 0.35 mg/dL (0.2-1.3); CALC OSMOLALITY 278 mosm/kg (275-300); CALCIUM 8.5 mg/dL (8.5-10.1); CARBON DIOXIDE 26.5 mmol/L (21.0-32.0); CHLORIDE - SERUM 104 mmol/L (98-107); CREATINE KINASE 242 UL (21-215); CREATININE - SERUM 0.7 mg/dL (0.6-1.3); GLUCOSE 87 mg/dL (74-106); MAGNESIUM - SERUM 2.3 mg/dL (1.8-2.4); POTASSIUM - SERUM 3.4 mmol/L (3.5-5.1); PROTEIN - SERUM 7.8 g/dL (6.4-8.2); SODIUM 141 mmol/L (136-145); UREA NITROGEN 11 mg/dL (7-18); eGFR NON AFRICAN AMERICAN 90 mL/min (90-120)
[2020-03-21 06:40] LABS: CKMB 0.8 U/L (0.0-3.6)
[2020-03-21 08:44] VITALS: BP 158/80
[2020-03-21 12:52] VITALS: Ht 162.6 cm; Wt 68.0 kg
[2020-03-21 13:30] VITALS: BP 156/77
[2020-03-21 17:37] VITALS: BP 148/76
[2020-03-21 20:00] VITALS: BP 177/92
--- NOTE | 2020-03-21 20:30 | NUR ---
ENTERED ROOM IN RESPONSE TO MELVA ALARM. PT IN RESTROOM ON TOILET. EYES CLOSED. GRUNTS IN REPLY TO QUESTIONS. INCONTINENT VOID EVIDENT ON FLOOR. DRIED AND MOPED BY EVS. GUIDED PT BACK TO BED. PT VOICED, "WHAT DO I DO WITH THIS?" (REFFERING TO WADDED TOILET PAPER IN HAND) CLEARLY AND COHERENTLY, EYES STILL CLOSED. THROWN ING TRASH, PT LAID BACK DOWN, MELVA ALARM ON, CTM.
[2020-03-22] VITALS: BP 174/78
--- NOTE | 2020-03-22 02:53 | NUR ---
I have reviewed this patient and I concur with the Shift Assessment completed by the Licensed Practical Nurse today this shift.
[2020-03-22 04:03] VITALS: BP 178/93
--- NOTE | 2020-03-22 08:13 | NUR ---
SPOKE TO DR ARGUETA IN REGARDS TO CONSULT, WENT OVER LAB AND CT RESULTS, PER DR ARGUETA NOT LEATHER BELT LOOP CUTTER UNTIL SATURDAY BUT RECOMMENDS MRI OF BRAIN, RELAYED MESSAGE TO [facility] PENDING CALL BACK
--- NOTE | 2020-03-22 09:08 | NUR ---
ASSESSMENT PER FLOW SHEET. PATIENT IS WITHOUT DISTRESS.SHE WAKES QUICKLY AND GET OOB,BUT DOESNT SPEAK. SHE DOES NOT OPEN ALL. FALL PREVENTION IN PLACE.DOOR OPEN
--- NOTE | 2020-03-22 09:20 | NUR ---
ASSESSMENT PER FLOW SHEET. PATIENT WILL NOT WAKE.SHE IS WITHOUT SIGNS OF DISTRESS.FALL PREVENTION IN PLACE WITH MELVA MAT
[2020-03-22 09:54] LABS: BASOPHILS 0.1 % (0-2); EOSINOPHILS 2.1 % (0-7); HEMATOCRIT 35.4 % (36.0-48.0); HEMOGLOBIN 11.2 g/dL (12-16); IMMATURE GRANULOCYTES 0.3 % (0-5); LYMPHOCYTES 22.2 % (15-50); MCH 27.2 pg (26.0-34.0); MCHC 31.6 g/dL (31.0-37.0); MCV 85.9 fL (80.0-100.0); MEAN PLATELET VOLUME 9.6 fL (7.4-10.4); MONOCYTES 9.4 % (2-11); NEUTROPHILS 65.9 % (40-80); PLATELET COUNT 257 10x3/uL (130-400); RBC 4.12 10x6/uL (4.00-5.40); RDW 14.8 % (11.5-14.5); WBC 7.6 10x3/uL (4.8-10.8)
[2020-03-22 10:04] VITALS: BP 166/90
[2020-03-22 10:09] LABS: ALBUMIN 3.6 g/dL (3.4-5.0); ALKALINE PHOSPHATASE 43 U/L (30-120); ALT (SGPT) 24 U/L (10-68); BILIRUBIN - TOTAL 0.51 mg/dL (0.2-1.3); CALCIUM 8.3 mg/dL (8.5-10.1); CARBON DIOXIDE 28.5 mmol/L (21.0-32.0); CHLORIDE - SERUM 102 mmol/L (98-107); GLUCOSE 85 mg/dL (74-106); SODIUM 138 mmol/L (136-145)
[2020-03-22 10:11] LABS: CALC OSMOLALITY 271 mosm/kg (275-300); CREATININE - SERUM 0.5 mg/dL (0.6-1.3); UREA NITROGEN 5 mg/dL (7-18); eGFR NON AFRICAN AMERICAN > 90 mL/min (90-120)
[2020-03-22 10:14] LABS: POTASSIUM - SERUM 2.8 mmol/L (3.5-5.1)
[2020-03-22 18:33] VITALS: BP 153/85
[2020-03-22 20:00] VITALS: BP 154/78
--- NOTE | 2020-03-22 22:00 | NUR ---
CONTINUED REFUSAL TO WEAR ACCOUNT DIRECTOR. RETURNED TO MONITOR STATION.
[2020-03-23] VITALS: BP 160/86
--- NOTE | 2020-03-23 00:10 | NUR ---
I have reviewed this patient and I concur with the Shift Assessment completed by the Licensed Practical Nurse today this shift.
--- NOTE | 2020-03-23 08:00 | NUR ---
PT IV IN LEFT AC IS LEAKING TURNED PT IV OFF AND ASKED PT IF I CAN TAKE V/S PT STATED "NO MA'AM YOU HAVE ALREADY TAKEN MY SIGNS". PT EYES WERE CLOSED THE WHOLE TIME. PT THEN TOLD ME NO WHEN I ASKED HER IF I COULD CHANGE HER GOWN BECAUSE SHE WAS WET. PT STATED " NO MA'AM YOU DID THIS TO ME. HAD TERMITE EXTERMINATOR COME ASSIST WITH GETTING PT CHANGED AND LINEN CHANGED. PT REFUSED TO LET ME REMOVE IV. CONTINUE WITH PLAN OF CARE
[2020-03-23 20:00] VITALS: BP 183/92
--- NOTE | 2020-03-24 06:18 | NUR ---
I have reviewed this patient and I concur with the Shift Assessment completed by the Licensed Practical Nurse today this shift.
--- NOTE | 2020-03-24 07:08 | NUR ---
PT ASSISTED TO BATHROOM AT THIS TIME. MINIMAL VERBAL COMMUNICATION WITH STAFF. SHE DOES VOICE NEEDS TO GO TO BATHROOM. WHEN STAFF ATTEMPTS TO ENGAGE HER IN CONVERSATION, SHE GRUNTS AND MOANS. PT DOES NOT PRESENT IN PAIN. IV TO LEFT HAND, SITE WITHOUT REDNESS OR EDEMA WITH NS W/ 20KCL @ 125ML/HR INFUSING VIA PUMP. DOES NOT VOICE FURTHER NEEDS AT THIS TIME. CL WITHIN REACH. ENCOURAGED TO CALL WITH NEEDS. CONTINUE POC
[2020-03-24 09:09] VITALS: BP 146/82
[2020-03-24 09:12] VITALS: BP 145/105
--- NOTE | 2020-03-24 12:32 | NUR ---
Nutrition follow-up: Pt receiving a regular diet; however, pt is refusing to eat per RN. Pt is confused. Labs reviewed Wt: 150# Recommend nutrition support due to pts poor po intake. RDN following.
[2020-03-24 17:22] VITALS: BP 163/91
--- NOTE | 2020-03-24 19:30 | NUR ---
LYING IN BED WITH EYES CLOSED. RESP NONLABORED. NO DISTRESS. MELVA ALARM ON. CL IN REACH.
[2020-03-24 20:00] VITALS: BP 157/91
--- NOTE | 2020-03-24 21:30 | NUR ---
IN BR SITTING ON TOILET. URINATED ALL THE WAY TO THE BATHROOM. BED ALARM ACTIVATED. PT CONFUSED. ARGUING WITH STAFF ABOUT PUTTING ON SOLID WASTE DISPOSAL MANAGER SOCKS BUT PLACED ON HER ANYWAY. REFUSED TO LET STAFF HELP HER BACK TO BED. SAT ON THE TOILET FOR AWHILE THEN WENT BACK TO BED. REFUSED TO TAKE MEDS. REFUSES TO SPEAK TO STAFF OR FOLLOW COMMANDS. MELVA ON AGAIN. CL IN REACH. NS WITH 20 MEQ KCL @ 125 MLHR INFUSING IN LT HAND.
--- NOTE | 2020-03-25 00:30 | NUR ---
UP TO BR AGAIN TO VOID CAUSING BED ALARM TO ACTIVATE. AMBULATED BACK TO BED. MELVA ON. CL IN REACH.
[2020-03-25 04:00] VITALS: BP 146/89
[2020-03-25 06:40] LABS: BASOPHILS 0.3 % (0-2); EOSINOPHILS 2.7 % (0-7); HEMATOCRIT 36.1 % (36.0-48.0); HEMOGLOBIN 11.8 g/dL (12-16); IMMATURE GRANULOCYTES 0.3 % (0-5); LYMPHOCYTES 27.3 % (15-50); MCH 27.8 pg (26.0-34.0); MCHC 32.7 g/dL (31.0-37.0); MCV 84.9 fL (80.0-100.0); MEAN PLATELET VOLUME 9.9 fL (7.4-10.4); MONOCYTES 8.2 % (2-11); NEUTROPHILS 61.2 % (40-80); PLATELET COUNT 286 10x3/uL (130-400); RBC 4.25 10x6/uL (4.00-5.40); RDW 14.6 % (11.5-14.5)
[2020-03-25 07:08] LABS: ALBUMIN 3.5 g/dL (3.4-5.0); ALKALINE PHOSPHATASE 44 U/L (30-120); ALT (SGPT) 31 U/L (10-68); BILIRUBIN - TOTAL 0.53 mg/dL (0.2-1.3); CALC OSMOLALITY 272 mosm/kg (275-300); CALCIUM 8.2 mg/dL (8.5-10.1); CARBON DIOXIDE 23.8 mmol/L (21.0-32.0); CHLORIDE - SERUM 101 mmol/L (98-107); CREATININE - SERUM 0.5 mg/dL (0.6-1.3); GLUCOSE 71 mg/dL (74-106); PROTEIN - SERUM 7.9 g/dL (6.4-8.2); SODIUM 139 mmol/L (136-145); UREA NITROGEN 4 mg/dL (7-18); eGFR NON AFRICAN AMERICAN > 90 mL/min (90-120)
[2020-03-25 07:32] LABS: POTASSIUM - SERUM 2.8 mmol/L (3.5-5.1)
--- NOTE | 2020-03-25 07:45 | NUR ---
PT RESTING IN BED WITH EYES CLOSED. PT NON RESPONSIVE TO STAFF. STERNAL RUB PERFORMED, PT MOANS AND EYES OPEN MOMENTARILY THEN CLOSES AGAIN. NO VERBAL RESPONSE. NO S/S OF PAIN AT THIS TIME. OFFERED WATER, BUT PT TURNS HEAD TO SIDE. ATTEMPTED TO TALK PT AND ENCOURAGE H20 CONSUMPTION, BUT PT DOES NOT ACKNOWLEDGE STAFF. IV TO LEFT HAND WITH NS W/20KCL @ 125ML/HR INFUSING VIA PUMP. SITE WITHOUT REDNESS OR EDEMA. CL WITHIN REACH. ENCOURAGED TO CALL WITH NEEDS.
[2020-03-25 08:32] VITALS: BP 156/77
--- NOTE | 2020-03-25 09:20 | NUR ---
RECEIVED TEXT FROM PT SON ANTONI IN REGARDS TO POSSIBLY TESTING FOR LEAD POISONING, ADVISED PT SON THAT THIS TEST HAS NOT BEEN RUN AND WILL CONTACT PT DOCTOR TO RELAY PT FAMILY REQUEST. PER ROSALIND ISIDRO GO AHEAD AND ORDER TEST. I WAS AT HOME DURING THIS CONVERSATION WITH SON AND STATED I WILL PUT ORDER IN FIRST THING THIS MORNING UPON ARRIVAL PT HAS BEEN REFUSING ALL TREATMENT. PT ALLOWED LAB TO TECH TO DRAW BLOOD THIS MORNING AND ABLE TO OBTAIN TUBE FOR LEAD TEST. RELAYED MESSAGE TO MARQUIS CORRALES. NO OTHER NEEDS AT THIS TIME. CONTINUE WITH PLAN OF CARE
[2020-03-25 12:03] VITALS: BP 150/80
[2020-03-25 20:00] VITALS: BP 152/88
[2020-03-26 04:00] VITALS: BP 150/87
[2020-03-26 06:14] LABS: BASOPHILS 0.1 % (0-2); EOSINOPHILS 2.7 % (0-7); HEMATOCRIT 33.9 % (36.0-48.0); HEMOGLOBIN 10.8 g/dL (12-16); IMMATURE GRANULOCYTES 0.3 % (0-5); LYMPHOCYTES 29.4 % (15-50); MCH 27.1 pg (26.0-34.0); MCHC 31.9 g/dL (31.0-37.0); MEAN PLATELET VOLUME 10.4 fL (7.4-10.4); MONOCYTES 7.2 % (2-11); NEUTROPHILS 60.3 % (40-80); PLATELET COUNT 295 10x3/uL (130-400); RBC 3.99 10x6/uL (4.00-5.40); RDW 14.6 % (11.5-14.5); WBC 7.8 10x3/uL (4.8-10.8)
[2020-03-26 06:42] LABS: ALBUMIN 3.2 g/dL (3.4-5.0); ALKALINE PHOSPHATASE 44 U/L (30-120); ALT (SGPT) 32 U/L (10-68); BILIRUBIN - TOTAL 0.45 mg/dL (0.2-1.3); CALC OSMOLALITY 274 mosm/kg (275-300); CALCIUM 7.7 mg/dL (8.5-10.1); CARBON DIOXIDE 23.4 mmol/L (21.0-32.0); CHLORIDE - SERUM 105 mmol/L (98-107); CREATININE - SERUM 0.5 mg/dL (0.6-1.3); GLUCOSE 76 mg/dL (74-106); POTASSIUM - SERUM 3.1 mmol/L (3.5-5.1); PROTEIN - SERUM 7.2 g/dL (6.4-8.2); SODIUM 140 mmol/L (136-145); UREA NITROGEN 4 mg/dL (7-18); eGFR NON AFRICAN AMERICAN > 90 mL/min (90-120)
--- NOTE | 2020-03-26 07:10 | NUR ---
RECEIVED REPORT, ASSUMED CARE, A&O, DENIES NEEDS, NO S/S OF DISTRESS NOTED, BREATHING EVEN UNLABORED, IV TO LH PATENT, BED LOWEST POSITION, MELVA ALARM ON, CALL LIGHT IN REACH
[2020-03-26 08:00] VITALS: BP 131/68
[2020-03-26 13:26] VITALS: BP 109/67
[2020-03-26 16:17] VITALS: BP 106/57
--- NOTE | 2020-03-26 17:14 | NUR ---
I have reviewed this patient and I concur with the Shift Assessment completed by the Licensed Practical Nurse today this shift.
[2020-03-26 20:00] VITALS: BP 155/83
[2020-03-27] VITALS: BP 132/56
[2020-03-27 04:00] VITALS: BP 152/85
[2020-03-27 07:01] LABS: BASOPHILS 0.2 % (0-2); EOSINOPHILS 5.2 % (0-7); HEMATOCRIT 32.8 % (36.0-48.0); HEMOGLOBIN 10.6 g/dL (12-16); IMMATURE GRANULOCYTES 0.2 % (0-5); MCH 27.3 pg (26.0-34.0); MCHC 32.3 g/dL (31.0-37.0); MCV 84.5 fL (80.0-100.0); MEAN PLATELET VOLUME 11.2 fL (7.4-10.4); MONOCYTES 5.3 % (2-11); NEUTROPHILS 53.1 % (40-80); PLATELET COUNT 271 10x3/uL (130-400); RBC 3.88 10x6/uL (4.00-5.40); RDW 14.7 % (11.5-14.5)
[2020-03-27 07:55] LABS: ALBUMIN 3.2 g/dL (3.4-5.0); ALKALINE PHOSPHATASE 42 U/L (30-120); ALT (SGPT) 28 U/L (10-68); BILIRUBIN - TOTAL 0.32 mg/dL (0.2-1.3); CALC OSMOLALITY 282 mosm/kg (275-300); CALCIUM 7.6 mg/dL (8.5-10.1); CHLORIDE - SERUM 109 mmol/L (98-107); CREATININE - SERUM 0.6 mg/dL (0.6-1.3); GLUCOSE 83 mg/dL (74-106); POTASSIUM - SERUM 3.1 mmol/L (3.5-5.1); PROTEIN - SERUM 7.1 g/dL (6.4-8.2); SODIUM 144 mmol/L (136-145); UREA NITROGEN 3 mg/dL (7-18); eGFR NON AFRICAN AMERICAN > 90 mL/min (90-120)
[2020-03-27 09:53] VITALS: BP 151/74
--- NOTE | 2020-03-27 11:11 | NUR ---
RECIEVED REPORT BEDSIDE. PT A&O X4. DENIES PAIN. PT APPEARS DEPRESSED, COMMUNICATES SLOWLY AND TURNS AWAY OCCASSIONALLY. PIV IN LEFT HAND, PATENT AND INFUSING, NO REDNESS OR SWELLING. PT ABLE TO AMBULATE TO BR WITHOUT ASSIST, C/O OF SLIGHT WEAKNESS IN LEGS. EDUCATED PT ON PLAN FOR REHAB AND CL AND NEEDS, VERBALIZED UNDERSTANDING. BED LOW, RAILS X2. CL IN REACH. WILL CONTINUE TO MONITOR.
[2020-03-27 12:45] VITALS: BP 154/78
[2020-03-27] MEDS ORDERED: GEODON20 MG PO (14:44)
[2020-03-27] MEDS ORDERED: VITAMIN B COMPLEX PO (15:10)
[2020-03-27] MEDS ORDERED: VITAMIN D PO (15:11)
--- NOTE | 2020-03-27 15:29 | MORECARE ---
CASE MANAGEMENT DISCHARGE SUMMARY PATIENT: AMARIS FLOWER UNIT: [id number] ADM DATE: 03/21/20 AGE: 64 : 57 SEX: F ROOM/BED: D.2203 AUTHOR: JAILENE PARR PHYSICIAN: REFERRING PHYSICIAN: DANIELLE HA MD DATE OF SERVICE: 03/27/20 Discharge Plan Patient Name: AMARIS FLOWER Facility: [facility]:[place] : 1955 Planned Disposition: Anticipated Discharge Date: Discharge Date: Expected LOS: Initial Reviewer: [email or web address] Initial Review Date: 03/21/2020 Generated: 03/27/20 4:29 pm Comments DCP- Discharge Planning Updated by [email or web address]: Viola Mercado on 03/27/20 2:[address] Patient Name: AMARIS FLOWER Admission Status: ER Accout number: [id number] Admission Date: 03-21-2020 : 1955 Admission Diagnosis:ALTERED MENTAL STATUS, UNSPECIFIED Attending: DANIELLE HA Current LOS: 6 Anticipated DC Date: Planned Disposition: Primary Insurance: UNINSURED DISCOUNT PLAN Discharge Planning Comments: CM met with patient to complete initial dc planning assessment. CM educated patient on the CM role and verbal consent given by patient to complete assessment. CM verified patient's address, phone number, and emergency contact phone numbers. Patient lives at home with her . At discharge patient plans to return home and feels this is a safe discharge. CM discussed availability of home health, rehab services, and medical equipment. Patient denied known discharge needs at this time. Pt states, " I am fine. I do not need you all asking so many questions about my home." Transportation provider at discharge will be her son Alex Chaparro. Pt states she has called him and he is on his way . CM will continue to follow and will assist as needed with dc plans/needs. Park Landscape Architect: Viola Mercado DCPIA - Discharge Planning Initial Assessment Updated by [email or web address]: Viola Mercado on 03/27/20 3:28 pm * PCP pt refused to answer questions related to dc planning assessment Patient Name: AMARIS FLOWER Page [id number] at 1529 All edits/amendments must be made on the electronic document DICTATION DATE: 03/27/201528 AERIAL ADVERTISER: RELL 03/27/201528 RPT#: [id number] DC DATE: STATUS: ADM IN [facility] [address] [place] [address] END OF REPORT
--- NOTE | 2020-03-27 16:32 | NUR ---
EDUCATED PT AND SON ON DISCHARGE INSTRUCTIONS, MEDICATIONS, TIME OF FOLLOW UP APT, VERBALIZED UNDERSTANDING. ESCORTED PT TO ER EXIT VIA WHEELCHAIR.
--- NOTE | 2020-03-28 07:59 | MORECARE ---
CASE MANAGEMENT DISCHARGE SUMMARY PATIENT: AMARIS FLOWER UNIT: [id number] ADM DATE: 03/21/20 AGE: 64 : 57 SEX: F ROOM/BED: D.8883 AUTHOR: JAILENE PARR PHYSICIAN: REFERRING PHYSICIAN: DANIELLE HA MD DATE OF SERVICE: 03/28/20 Discharge Plan Patient Name: AMARIS FLOWER Facility: [facility]:[place] : 1955 Planned Disposition: Anticipated Discharge Date: Discharge Date: 03/27/2020 Expected LOS: Initial Reviewer: [email or web address] Initial Review Date: 03/21/2020 Generated: 03/28/20 8:59 am Comments DCP- Discharge Planning Updated by [email or web address]: Viola Mercado on 03/27/20 2:[address] Patient Name: AMARIS FLOWER Admission Status: ER Accout number: [id number] Admission Date: 03-21-2020 : 1955 Admission Diagnosis:ALTERED MENTAL STATUS, UNSPECIFIED Attending: DANIELLE HA Current LOS: 6 Anticipated DC Date: Planned Disposition: Primary Insurance: UNINSURED DISCOUNT PLAN Discharge Planning Comments: CM met with patient to complete initial dc planning assessment. CM educated patient on the CM role and verbal consent given by patient to complete assessment. CM verified patient's address, phone number, and emergency contact phone numbers. Patient lives at home with her . At discharge patient plans to return home and feels this is a safe discharge. CM discussed availability of home health, rehab services, and medical equipment. Patient denied known discharge needs at this time. Pt states, " I am fine. I do not need you all asking so many questions about my home." Transportation provider at discharge will be her son Alex Chaparro. Pt states she has called him and he is on his way . CM will continue to follow and will assist as needed with dc plans/needs. Sensory Scientist: Viola Mercado DCPIA - Discharge Planning Initial Assessment Updated by [email or web address]: Viola Mercado on 03/27/20 3:28 pm * PCP pt refused to answer questions related to dc planning assessment Last DP export: 03/27/20 2:29 p Patient Name: AMARIS FLOWER Page [phone] at 0759 All edits/amendments must be made on the electronic document DICTATION DATE: 03/28/20758 PROGRAM WRITER: RELL 03/28/20 0759 RPT#: [id number] DC DATE:03/27/20 STATUS: DIS IN [facility] [address] [place] [address] END OF REPORT
== END 2020-03-27 16:33 | disposition home or self-care (01) | DRG 884 ==
LOC: D.ER 19:57 → D.MS 03-21 01:29
PROVIDERS: Emergency Medicine; Family Medicine; ADMIT Legal Medicine; ATTEND Legal Medicine
DX: F06.1 Catatonic disorder due to known physiological condition (principal); E46 Unspecified protein-calorie malnutrition; R41.82 Altered mental status, unspecified; E53.8 Deficiency of other specified B group vitamins; E87.6 Hypokalemia; R62.7 Adult failure to thrive; F03.90 Unspecified dementia, unspecified severity, without behavioral disturbance, psychotic disturbance, mood disturbance, and anxiety